=== PATIENT | female | born 2000 | race Caucasian/White ===

== ENCOUNTER 2020-08-02 00:37 | Emergency (ER) | payer OTHER ==
--- NOTE | 2020-08-02 01:14 | ED Physician Documentation ---
PD HPI LOWER EXT INJURY - Stated complaint Stated Complaint: RT FOOT PX/INJ - Chief complaint Chief Complaint: Trauma Ext - History obtained from History obtained from: Patient - History of Present Illness PD HPI LOW EXT INJURY LOCATION: Right, Ankle Type of injury: Fall Where injury occurred: Work Timing - onset: Enter time (19:00), Today Timing - details: Abrupt onset Pain level now: 7 Improved by: Rest, Ice Worsened by: Moving, Palpating Associated symptoms: Swelling. No: Weakness, Numbness Recently seen: Not recently seen - Additional information Additional information: slipped on wet floor while at work at approximately 7PM tonight, twisted right ankle, c/o right ankle pain predominantly lateral aspect Review of Systems Musculoskeletal: reports: Joint pain, Joint swelling, Pain with weight bearing Neurologic: denies: Focal weakness, Numbness PD PAST MEDICAL HISTORY - Past Medical History Past Medical History: No - Past Surgical History Past Surgical History: No - Allergies Allergies/Adverse Reactions: Allergies Allergy/AdvReac Type Severity Reaction Status Date / Time No Known Drug Allergies Allergy Verified 08/02/20 03:02 - Social History Does the pt smoke?: No Smoking Status: Never smoker Does the pt drink ETOH?: Yes Does the pt have substance abuse?: No - Immunizations Immunizations are current?: Yes - POLST Patient has POLST: No PD ED PE NORMAL - Vitals Vital signs reviewed: Yes - General General: Alert and oriented X 3, No acute distress, Well developed/nourished - Neuro Neuro: No motor deficit, No sensory deficit PD ED PE EXPANDED - Extremities Extremities: Tenderness, Limited ROM, Swelling, Other (tenderness, swelling right ankle lateral malleolus) Results - Vitals Vitals: Vital Signs - 24 hr 08/02/20 08/02/20 00:49 03:04 Temperature 36.8 C 37 C Heart Rate 86 82 Respiratory 18 17 Rate Blood Pressure 128/81 H 126/84 H O2 Saturation 99 100 Oxygen O2 Source Room air - Rads (name of study) right ankle xrays Radiology: Prelim report reviewed, See rad report PD MEDICAL DECISION MAKING - ED course Complexity details: reviewed results, re-evaluated patient, considered differential, d/w patient Departure - Departure Disposition: 01 Home, Self Care Clinical Impression: Ankle sprain Condition: Good Instructions: ED Sprain Ankle Follow-Up: BEAU Garcia [Provider Group] (3-4 days ) Forms: Activity restrictions Discharge Date/Time: 08/02/20 03:30
[2020-08-02] MEDS ORDERED: IBUPROFEN 600 MG TABLET PO STA (02:53)
[2020-08-02 03:05] VITALS: BP 126/84
--- NOTE | 2020-08-02 08:04 | XRAY Report ---
PROCEDURE: Ankle 3 View RT INDICATIONS: injury, tenderness TECHNIQUE: 3 views of the ankle were acquired. COMPARISON: None FINDINGS: Bones: No fractures or dislocations. Ankle mortise is normally aligned. No suspicious bony lesions . Soft tissues: No tibiotalar joint effusion. Achilles tendon appears normal. Lateral soft tissue swe lling is noted and ligamentous injury cannot be excluded. IMPRESSION: No fracture. No osseous lesion. If there is continued clinical concern for pathology, then repeat rustam in film radiographs (7-10 days) or advanced imaging (CT, MR, bone scan) should be considered for furt her evaluation. Reviewed by: Ana Madrid MD, PhD on 08/02/2020 8:02 AM PDT Approved by: Ana Madrid MD, PhD on 08/02/2020 8:02 AM PDT Station ID: [id number]
== END 2020-08-02 03:30 | disposition home or self-care (01) ==
LOC: ED 00:37
DX: S93.401A Sprain of unspecified ligament of right ankle, initial encounter (principal); W01.0XXA Fall on same level from slipping, tripping and stumbling without subsequent striking against object, initial encounter; X50.1XXA Overexertion from prolonged static or awkward postures, initial encounter; Y99.1 Military activity
CPT/HCPCS: 73610; 99282; 99283; A9270